=== PATIENT | male | born 1950 | race African-American/Black ===

== ENCOUNTER 2020-12-15 13:17 | Observation (INO) | payer MEDICARE ==
[~2020-12-15] VITALS: Ht 162.6 cm; Wt 81.2 kg
[2020-12-15] MEDS ORDERED: SODIUM CHLORIDE 0.9% 1000ML 500 ML IV STA (13:36)
[2020-12-15 13:46] LABS: BASOPHILS # (AUTO) 0.1 (0.0-0.1); BASOPHILS % 0.7 % (0.0-1.0); EOSINOPHILS # (AUTO) 0.2 (0.0-0.4); EOSINOPHILS % 1.9 % (0.0-6.0); HEMOGLOBIN 13.4 g/dL (14.0-18.0); LYMPHOCYTES # (AUTO) 3.9 (1.0-3.2); LYMPHOCYTES % 48.1 % (18.0-39.1); MEAN CORPUSCULAR HEMOGLOBIN 28.5 pg (28-32); MEAN CORPUSCULAR HGB CONC 31.9 g/dL (31-35); MEAN CORPUSCULAR VOLUME 89.2 fL (81-99); MONOCYTES # (AUTO) 0.7 (0.2-0.8); MONOCYTES % 8.2 % (4.4-11.3); NEUTROPHILS # (AUTO) 3.3 (2.1-6.9); NEUTROPHILS % 40.9 % (38.7-80.0); PLATELET COUNT 208 x10e3/uL (140-360); RED BLOOD COUNT 4.71 x10e6/uL (4.3-5.7); RED CELL DISTRIBUTION WIDTH 13.2 % (11.7-14.4)
[2020-12-15 14:00] LABS: ALANINE AMINOTRANSFERASE 27 IU/L (0-55); ALBUMIN 3.9 g/dL (3.5-5.0); ALKALINE PHOSPHATASE 70 IU/L (40-150); ANION GAP 16.3 mmol/L (8-16); BLOOD UREA NITROGEN 13 mg/dL (7-26); BUN/CREATININE RATIO 10 (6-25); CARBON DIOXIDE 23 mmol/L (22-29); CHLORIDE 104 mmol/L (98-107); CREATINE KINASE 155 IU/L (30-200); CREATININE, SERUM 1.28 mg/dL (0.72-1.25); EST GLOMERULAR FILTRATION RATE 56 ML/MIN (60-); GLUCOSE 167 mg/dL (74-118); POTASSIUM 4.3 mmol/L (3.5-5.1); SODIUM 139 mmol/L (136-145)
[2020-12-15 14:10] LABS: INR 0.97; PROTHROMBIN TIME 13.3 seconds (11.9-14.5)
[2020-12-15 14:11] LABS: PARTIAL THROMBOPLASTIN TIME 31.8 seconds (23.8-35.5)
[2020-12-15 16:27] LABS: CLARITY,URINE CLEAR (CLEAR); COLOR,URINE YELLOW (YELLOW); KETONES,URINE NEGATIVE (NEGATIVE); LEUKOCYTE ESTERASE ,URINE NEGATIVE (NEGATIVE); NITRITE,URINE NEGATIVE (NEGATIVE); PROTEIN,URINE DIPSTICK NEGATIVE (NEGATIVE); URINE UROBILINOGEN 0.2 mg/dL (0.2 - 1)
[2020-12-15 16:38] LABS: EPITHELIAL CELLS,URINE FEW /LPF
[2020-12-15 20:00] VITALS: BP 127/86
[2020-12-15] MEDS ORDERED: METFORMIN HCL500 MG PO (20:05)
[2020-12-15] MEDS ORDERED: FLUTICASONE PRO16 GM (20:05)
[2020-12-15] MEDS ORDERED: ATORVASTATIN CA80 MG PO (20:05)
[2020-12-15] MEDS ORDERED: CLOPIDOGREL75 MG PO (20:05)
[2020-12-15 20:38] LABS: CREATINE KINASE 136 IU/L (30-200)
[2020-12-15] MEDS ORDERED: FLUTICASONE PROPIONATE NASAL SPRAY NS PRN (20:45)
[2020-12-15] MEDS ORDERED: DEXTROSE 50% SYRINGE 50 ML IV PRN ×2 (20:45)
[2020-12-15] MEDS ORDERED: ACETAMINOPHEN 325 MG TAB PO PRN (20:45)
[2020-12-15] MEDS ORDERED: ONDANSETRON HCL INJ 2MG/ML 2ML 2 MG/ML VIAL IV PRN (20:45)
[2020-12-15] MEDS: ATORVASTATIN 40 MG TAB PO SCH (20:56)
[2020-12-15] MEDS ORDERED: METOPROLOL TARTRATE INJ 1 MG/ML VIAL IV PRN (21:00)
[2020-12-15] MEDS: INSULIN LISPRO 100 UNIT/1 ML 3ML VIAL SQ SCH (21:00)
[2020-12-15] MEDS: IBUPROFEN 600 MG TAB PO PRN (21:00)
[2020-12-15] MEDS ORDERED: SODIUM CHLORIDE 0.9% 1000ML 1,000 ML IV SCH (21:00)
[2020-12-15] MEDS ORDERED: INSULIN REGULAR, HUMAN 100 UNIT/1 ML SQ SCH (21:00)
[2020-12-15 21:30] VITALS: BP 127/86
[2020-12-16] VITALS (8 sets, daily range): BP systolic 106–134; BP diastolic 68–88
[2020-12-16 04:59] LABS: BASOPHILS % 0.4 % (0.0-1.0); EOSINOPHILS # (AUTO) 0.1 (0.0-0.4); EOSINOPHILS % 1.4 % (0.0-6.0); HEMATOCRIT 38.4 % (38.2-49.6); HEMOGLOBIN 12.7 g/dL (14.0-18.0); LYMPHOCYTES # (AUTO) 3.2 (1.0-3.2); LYMPHOCYTES % 31.5 % (18.0-39.1); MEAN CORPUSCULAR HEMOGLOBIN 28.5 pg (28-32); MEAN CORPUSCULAR HGB CONC 33.1 g/dL (31-35); MEAN CORPUSCULAR VOLUME 86.3 fL (81-99); MONOCYTES # (AUTO) 0.9 (0.2-0.8); MONOCYTES % 8.6 % (4.4-11.3); NEUTROPHILS # (AUTO) 5.9 (2.1-6.9); NEUTROPHILS % 57.9 % (38.7-80.0); PLATELET COUNT 198 x10e3/uL (140-360); RED BLOOD COUNT 4.45 x10e6/uL (4.3-5.7)
[2020-12-16 05:16] LABS: ANION GAP 13.7 mmol/L (8-16); CALCIUM 8.4 mg/dL (8.4-10.2); CREATININE, SERUM 1.07 mg/dL (0.72-1.25); POTASSIUM 3.7 mmol/L (3.5-5.1)
[2020-12-16 05:53] LABS: CHOL/HDL RATIO 3.1 (3.9-4.7)
[2020-12-16 07:00] LABS: CREATINE KINASE 126 IU/L (30-200)
[2020-12-16] MEDS: INSULIN LISPRO 100 UNIT/1 ML 3ML VIAL SQ SCH ×4 (07:30→21:00)
[2020-12-16] MEDS ORDERED: ASPIRIN81 MG PO (08:39)
[2020-12-16] MEDS: CLOPIDOGREL BISULFATE 75 MG TAB PO SCH (08:42)
[2020-12-16] MEDS ORDERED: NON-FORMULARY MEDICATION (Atorvastatin Calcium 80 MG) PO SCH (09:00)
[2020-12-16] MEDS: IBUPROFEN 600 MG TAB PO PRN ×2 (09:33→16:46)
[2020-12-16 13:29] LABS: CREATINE KINASE 159 IU/L (30-200)
[2020-12-16] MEDS: METFORMIN HCL 500 MG TAB PO SCH (16:44)
[2020-12-16] MEDS: ATORVASTATIN 40 MG TAB PO SCH (21:00)
[2020-12-16] MEDS ORDERED: IOPAMIDOL 370 MG/ML 200 ML INFUS..BTL INJ ONE (22:35)
[2020-12-16] MEDS ORDERED: SODIUM CHLORIDE 0.9% 100 ML ONE (22:35)
[2020-12-17] VITALS: BP 109/82
[2020-12-17 04:00] VITALS: BP 112/76
[2020-12-17] MEDS: INSULIN LISPRO 100 UNIT/1 ML 3ML VIAL SQ SCH ×2 (07:30→11:30)
[2020-12-17 07:47] VITALS: BP 115/82
[2020-12-17 08:21] VITALS: BP 115/82
[2020-12-17] MEDS: METFORMIN HCL 500 MG TAB PO SCH (08:46)
[2020-12-17] MEDS ORDERED: ASPIRIN 81 MG CHEW TAB PO SCH (09:00)
[2020-12-17] MEDS: CLOPIDOGREL BISULFATE 75 MG TAB PO SCH (09:01)
[2020-12-17] MEDS ORDERED: ONDANSETRON HCL 4 MG ORAL DISINTEGRATING TAB PO PRN (09:45)
[2020-12-17 11:39] VITALS: BP 116/84
== END 2020-12-17 13:20 | disposition home or self-care (01) ==
LOC: ER 13:22 → ERHOLD 16:25 → MED/SURG 19:40
PROVIDERS: ADMIT Internal Medicine; ATTEND Internal Medicine
DX: R55 Syncope and collapse (principal); M25.561 Pain in right knee; N17.9 Acute kidney failure, unspecified; E11.9 Type 2 diabetes mellitus without complications; E78.00 Pure hypercholesterolemia, unspecified; Z86.73 Personal history of transient ischemic attack (TIA), and cerebral infarction without residual deficits; Z83.3 Family history of diabetes mellitus; Z82.49 Family history of ischemic heart disease and other diseases of the circulatory system; Z20.822 Contact with and (suspected) exposure to COVID-19; Z79.82 Long term (current) use of aspirin; Z79.84 Long term (current) use of oral hypoglycemic drugs
CPT/HCPCS: 36415 ×3; 70450; 70496; 70498; 70551; 71045; 73562; 80048; 80053; 80061; 81001; 82550 ×2; 82553 ×2; 82607; 82948 ×3; 83090; 83880; 84146; 84484 ×2; 85025 ×2; 85610; 85730; 86039; 93005; 93306; 93880; 96360; 96361; 97139; 99251; 99284; G0378 ×3; J7030 ×2; J7050; Q9967; U0002